=== PATIENT | female | born 1960 | race Caucasian/White ===

== ENCOUNTER → 2017-06-19 | Outpatient (CLI) | payer BC ==
--- NOTE | 2017-06-23 09:55 | MM ---
Reason for exam: screening (asymptomatic). Last mammogram was performed 2 years ago. History: Patient had first child at age 41. Family history of breast cancer in mother at age 68. MG Screening Mammo w CAD Bilateral CC and MLO view(s) were taken. Prior study comparison: June 26, 2015, bilateral MG screening mammo w CAD. February 07, 2014, bilateral MG diagnostic mammo w CAD REJI. The breast tissue is extremely dense which could obscure a lesion on mammography. No significant changes when compared with prior studies. ASSESSMENT: Benign, BI-RAD 2 RECOMMENDATION: Routine screening mammogram of both breasts in 1 year.
== END | disposition home or self-care (01) ==
LOC: RADMAMWWP 14:05
PROVIDERS: ATTEND Obstetrics & Gynecology
DX: Z12.31 Encounter for screening mammogram for malignant neoplasm of breast (principal)

== ENCOUNTER → 2018-11-27 | Outpatient (CLI) | payer BC ==
--- NOTE | 2018-12-01 12:14 | MM ---
Reason for exam: screening (asymptomatic). Last mammogram was performed 1 year and 5 months ago. History: Patient is postmenopausal and had first child at age 41. Family history of breast cancer in mother at age 68. Physical Findings: A clinical breast exam by your physician is recommended on an annual basis and results should be correlated with mammographic findings. MG Screening Mammo w CAD Bilateral CC and MLO view(s) were taken. Prior study comparison: June 19, 2017, bilateral MG screening mammo w CAD. June 26, 2015, bilateral MG screening mammo w CAD. The breast tissue is extremely dense which could obscure a lesion on mammography. Benign appearing bilateral calcifications. No suspicious abnormality. No significant changes when compared with prior studies. ASSESSMENT: Benign, BI-RAD 2 RECOMMENDATION: Routine screening mammogram of both breasts in 1 year.
== END ==
LOC: RADMAMWWP 15:13
PROVIDERS: ATTEND Obstetrics & Gynecology
DX: Z12.31 Encounter for screening mammogram for malignant neoplasm of breast (principal); Z80.3 Family history of malignant neoplasm of breast
CPT/HCPCS: 77067

== ENCOUNTER → 2020-04-03 | Outpatient (CLI) | payer BC ==
--- NOTE | 2020-04-04 13:56 | MM ---
Reason for exam: screening (asymptomatic). Last mammogram was performed 1 year and 4 months ago. History: Patient is postmenopausal and had first child at age 41. Family history of breast cancer in mother at age 68. Physical Findings: A clinical breast exam by your physician is recommended on an annual basis and results should be correlated with mammographic findings. MG 3D Screening Mammo W/Cad Bilateral CC and MLO view(s) were taken. Prior study comparison: November 27, 2018, bilateral MG screening mammo w CAD. June 19, 2017, bilateral MG screening mammo w CAD. The breast tissue is extremely dense which could obscure a lesion on mammography. No significant changes when compared with prior studies. ASSESSMENT: Benign, BI-RAD 2 RECOMMENDATION: Routine screening mammogram of both breasts in 1 year.
== END | disposition home or self-care (01) ==
LOC: RADMAMWWP 11:36
PROVIDERS: ATTEND Obstetrics & Gynecology
DX: Z12.31 Encounter for screening mammogram for malignant neoplasm of breast (principal); Z80.3 Family history of malignant neoplasm of breast
CPT/HCPCS: 77063; 77067

== ENCOUNTER → 2021-08-16 | Outpatient (CLI) | payer BC ==
--- NOTE | 2021-08-20 09:18 | MM ---
Reason for exam: screening (asymptomatic). Last mammogram was performed 1 year and 4 months ago. History: Patient is postmenopausal and had first child at age 41. Family history of breast cancer in mother at age 68. Physical Findings: A clinical breast exam by your physician is recommended on an annual basis and results should be correlated with mammographic findings. MG Screening Mammo w CAD Bilateral CC and MLO view(s) were taken. Prior study comparison: April 03, 2020, bilateral MG 3d screening mammo w/cad. November 27, 2018, bilateral MG screening mammo w CAD. The breast tissue is extremely dense which could obscure a lesion on mammography. No significant changes when compared with prior studies. ASSESSMENT: Benign, BI-RAD 2 RECOMMENDATION: Routine screening mammogram of both breasts in 1 year.
== END | disposition home or self-care (01) ==
LOC: RADMAMWWP 13:45
PROVIDERS: ATTEND Obstetrics & Gynecology
DX: Z12.31 Encounter for screening mammogram for malignant neoplasm of breast (principal); Z80.3 Family history of malignant neoplasm of breast; Z78.0 Asymptomatic menopausal state
CPT/HCPCS: 77067

== ENCOUNTER → 2023-02-24 | Outpatient (CLI) | payer BC ==
--- NOTE | 2023-02-25 08:30 | MM ---
Reason for Exam: Screening (asymptomatic). Last mammogram was performed 1 year(s) and 6 month(s) ago. Patient History: Menarche at age 15. First Full-Term at age 41. Late child-bearing (after 30). Postmenopausal. Mother had breast cancer, age 68. Risk Values: Jeri 5 year model risk: 2.9%. NCI Lifetime model risk: 14.3%. Prior Study Comparison: 11/27/2018 Bilateral Screening Mammogram, [facility]. 04/03/2020 Bilateral Screening Mammogram, [facility]. 08/16/2021 Bilateral Screening Mammogram, [facility]. Tissue Density: The breast tissue is heterogeneously dense. This may lower the sensitivity of mammography. Findings: Analyzed By CAD. There is no new suspicious mass within either breast. Stable benign-appearing calcifications within the right breast. There are 2 new grouped punctate calcifications within the left breast middle depth centrally and slightly lateral. Overall Assessment: Incomplete: need additional imaging evaluation, BI-RAD 0 Management: Diagnostic Mammogram of the left breast. A clinical breast exam by your physician is recommended on an annual basis and results should be correlated with mammographic findings. [facility] will attempt to contact patient to return for supplemental views and ultrasound if indicated. Note on Jeri scores and lifetime risk: 1. A Jeri score greater than 3% is considered moderate risk. If this is the case, consider specialist referral to assess eligibility for a risk reducing agent. If overall lifetime risk for the development of breast cancer is 20% or higher, the patient may qualify for future screening with alternating mammogram and breast MRI. Electronically signed and approved by: Royce Perry D.O.
== END | disposition home or self-care (01) ==
LOC: RADMAMWWP 15:21
PROVIDERS: ATTEND Obstetrics & Gynecology
DX: Z12.31 Encounter for screening mammogram for malignant neoplasm of breast (principal); Z78.0 Asymptomatic menopausal state; Z80.3 Family history of malignant neoplasm of breast
CPT/HCPCS: 77063; 77067

== ENCOUNTER → 2023-02-26 | Outpatient (CLI) | payer BC ==
--- NOTE | 2023-02-26 08:56 | MM ---
Reason for Exam: Additional evaluation requested from abnormal screening. Last screening mammogram was performed less than 1 month ago. Patient History: Menarche at age 15. First Full-Term at age 41. Late child-bearing (after 30). Postmenopausal. Mother had breast cancer, age 68. Risk Values: Jeri 5 year model risk: 2.9%. NCI Lifetime model risk: 14.3%. Prior Study Comparison: 04/03/2020 Bilateral Screening Mammogram, [facility]. 08/16/2021 Bilateral Screening Mammogram, [facility]. 02/24/2023 Bilateral MG 3D screening mammo w/cad, [facility]. Tissue Density: Left: The breast tissue is extremely dense which could obscure a lesion on mammography. Findings: Analyzed By CAD. There are new groups of heterogenous calcifications in the mid middle position left breast. These are an interval change from 2021. Stereotactic guided core biopsy 2 adjacent locations is recommended. Overall Assessment: Suspicious, BI-RAD 4 Management: Stereotactic Core Biopsy of the left breast. A negative mammogram report should not preclude additional follow up of suspicious palpable abnormalities. Patient should continue monthly self breast exam. A clinical breast exam by your physician is recommended on an annual basis and results should be correlated with mammographic findings. Electronically signed and approved by: Codey Markham D.O. Radiologis
== END | disposition home or self-care (01) ==
LOC: RADMAMWWP 08:18
PROVIDERS: ATTEND Obstetrics & Gynecology
DX: R92.8 Other abnormal and inconclusive findings on diagnostic imaging of breast (principal); Z78.0 Asymptomatic menopausal state; Z80.3 Family history of malignant neoplasm of breast
CPT/HCPCS: 77061; 77065

== ENCOUNTER → 2023-03-04 | Day surgery (SDC) | payer BC ==
[2023-03-04 08:01] VITALS: RESP 16; TEMP 98.2
[2023-03-04 10:28] VITALS: BP 133/75; PULSE 61
--- NOTE | 2023-03-13 10:01 | MM ---
Risk Values: Jeri 5 year model risk: 2.9%. NCI Lifetime model risk: 14.3%. Prior Study Comparison: 08/16/2021 Bilateral Screening Mammogram, [facility]. 02/24/2023 Bilateral MG 3D screening mammo w/cad, [facility]. 02/26/2023 Left MG 3D work up w/cad , [facility]. Pathology Description: Approach: Lateral to Medial Needle Type: Eviva Cores: 7 Skin Nicks: 1 Gauge: 9 no problems. Pathology Description: Approach: Lateral to Medial Needle Type: Eviva Cores: 7 Skin Nicks: 1 Gauge: 9 tumark Q SHAPE. Pathology Description: Approach: Lateral to Medial Needle Type: Eviva Cores: 7 Skin Nicks: 1 Gauge: 9 The calcifications in question within the left breast were targeted by the undersigned. Procedure was performed by the undersigned. Informed consent was obtained and all of the patients questions were answered. The standard sterile technique was utilized and appropriate local anesthesia was obtained at sites labeled A, B and C with 1% lidocaine (7cc per site) as well as 2% lidocaine epinephrine mixture (3cc per site). Mammotome probe was advanced into site A which is the most posterior group of microcalcifications and multiple core samples were obtained and sent to pathology for interpretation. Secure dylan top hat clip was deployed at the site of biopsy. This procedure mammogram demonstrates 9 mm clip migration anterolaterally. Mammotome probe was advanced into site B which is the middle group of microcalcifications and multiple core samples were obtained and sent to pathology for interpretation. Bowtie trimark clip was deployed at the site of biopsy. This procedure mammogram demonstrates 4 mm clip migration anteriorly. Mammotome probe was advanced into site C which is the most anterior group of microcalcifications and multiple core samples were obtained and sent to pathology for interpretation. [employer] Tumark clip was deployed at the site of biopsy. This procedure mammogram demonstrates no clip migration. The patient tolerated the procedure well and left the department in stable condition. Pathology results are pending. Impression: Successful stereotactic core biopsy of 3 sites within the left breast labeled A, B and C. PATHOLOGY STATUS:. Pathology Results: Result: Malignant, Invasive ductal carcinoma. A. 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 See Surgical Pathology Cancer Case Summary and Comment. B. 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 See Surgical Pathology Cancer Case Summary and Comment. C. LEFT BREAST, SITE C, STEREOTACTIC NEEDLE CORE BIOPSY: Microinvasive ductal carcinoma arising in background high grade DCIS. See Surgical Pathology Cancer Case Summary and Comment. Overall Assessment: Malignant Management: Surgical Consultation of the left breast. Consider MRI. Electronically signed and approved by: Nolan Silver M.D. Radiologis
== END ==
LOC: RADMAMWWP 07:34
PROVIDERS: ATTEND Surgery
DX: D05.12 Intraductal carcinoma in situ of left breast (principal); Z17.0 Estrogen receptor positive status [ER+]
CPT/HCPCS: 88305; 88342; 88341; 19081; 19082; A4648; J2001

== ENCOUNTER → 2023-03-19 | Outpatient (CLI) | payer BC ==
--- NOTE | 2023-03-20 08:49 | CA ---
Transthoracic Echo Report Name: Veronica Coulter Age: 62 Gender: F : 1960 Exam Date: 03/19/2023 15:46 Exam Location: [facility] Ht (in): 64 Wt (lb): 122 Ordering Physician: Josse Gordillo MD Attending/Referring Phys: Rigging Helper Tasha Vásquez RUST Procedure CPT: Indications: Z01.818 Chemo Cardiac Hx: Technical Quality: Fair Contrast 1: Total Dose (mL): Contrast 2: Total Dose (mL): MEASUREMENTS (Male / Female) Normal Values 2D ECHO LV Diastolic Diameter PLAX 4.6 cm 4.2 - 5.9 / 3.9 - 5.3 cm LV Systolic Diameter PLAX 3.3 cm IVS Diastolic Thickness 0.6 cm 0.6 - 1.0 / 0.6 - 0.9 cm LVPW Diastolic Thickness 0.7 cm 0.6 - 1.0 / 0.6 - 0.9 cm LV Relative Wall Thickness 0.3 LV Diastolic Volume MOD BP 81.0 cm??? 67 - 155 / 56 - 104 cm??? LV Systolic Volume MOD BP 36.3 cm??? 22 - 58 / 19 - 49 cm??? LV Ejection Fraction MOD BP 55.1 % >= 55 % LV Cardiac Index MOD BP 1581.9 cm???/min???m??? LV Diastolic Volume MOD 4C 79.0 cm??? LV Systolic Volume MOD 4C 31.7 cm??? LV Ejection Fraction MOD 4C 59.9 % LV Cardiac Index MOD 4C 1676.6 cm???/min???m??? LV Diastolic Length 4C 7.0 cm LV Systolic Length 4C 5.8 cm LV Diastolic Volume MOD 2C 80.5 cm??? LV Systolic Volume MOD 2C 38.9 cm??? LV Ejection Fraction MOD 2C 51.7 % LV Cardiac Index MOD 2C 1474.3 cm???/min???m??? LV Diastolic Length 2C 7.3 cm LV Systolic Length 2C 6.2 cm Ascending Aorta Diameter 3.2 cm M-MODE Aortic Root Diameter MM 3.0 cm LA Systolic Diameter MM 3.6 cm LA Ao Ratio MM 1.2 AV Cusp Separation MM 2.2 cm DOPPLER AV Peak Velocity 99.4 cm/s AV Peak Gradient 4.0 mmHg AV Mean Velocity 70.5 cm/s AV Mean Gradient 2.2 mmHg AV Velocity Time Integral 19.5 cm LVOT Peak Velocity 83.9 cm/s LVOT Peak Gradient 2.8 mmHg LVOT Velocity Time Integral 18.2 cm Mitral E Point Velocity 54.6 cm/s Mitral A Point Velocity 44.9 cm/s Mitral E to A Ratio 1.2 MV Deceleration Time 204.8 ms LV E' Lateral Velocity 12.6 cm/s Mitral E to LV E' Lateral Ratio 4.3 LV E' Septal Velocity 10.9 cm/s Mitral E to LV E' Septal Ratio 5.0 TR Peak Velocity 193.0 cm/s TR Peak Gradient 14.9 mmHg Right Atrial Pressure 8.0 mmHg Pulmonary Artery Systolic Pressu 22.9 mmHg Right Ventricular Systolic Press 22.9 mmHg FINDINGS Left Ventricle Left ventricular wall thickness normal. Left ventricular cavity size normal. normal left ventricular systolic function with no obvious regional wall motion abnormalities. Left ventricular ejection fraction is estimated at 55-60 %. Right Ventricle Mild right ventricular dilatation. Right Atrium Mild right atrial dilatation. Left Atrium Normal left atrial size. Mitral Valve Structurally normal mitral valve. Mild mitral regurgitation. Aortic Valve Trileaflet aortic valve. Mild aortic regurgitation. Mildly thickened leaflets Tricuspid Valve Structurally normal tricuspid valve. Mild tricuspid regurgitation. Pulmonic Valve Pulmonic valve not well visualized. Pericardium No pericardial effusion. Aorta Normal size aortic root and proximal ascending aorta. CONCLUSIONS 1. Normal left ventricular size and systolic function 2. Mild mitral, aortic and tricuspid regurgitation Previewed by: Dr. Steven Smith MD (Electronically Signed) Final Date: 20 March 2023 08:48
== END | disposition home or self-care (01) ==
LOC: RADECHMAIN 15:35
PROVIDERS: ATTEND Internal Medicine Hematology & Oncology
DX: Z01.818 Encounter for other preprocedural examination (principal); I08.3 Combined rheumatic disorders of mitral, aortic and tricuspid valves
CPT/HCPCS: 93306

== ENCOUNTER → 2023-07-08 | Outpatient (CLI) | payer BC ==
[2023-07-08 20:32] LABS: ALT 55 U/L (8-44); AST 35 U/L (13-35); Albumin 4.7 g/dL (3.8-4.9); Albumin/Globulin Ratio 2.24 Ratio (1.60-3.17); Alkaline Phosphatase 108 U/L (41-126); BUN/Creat Ratio 20.89 Ratio (12.00-20.00); Blood Urea Nitrogen 18.8 mg/dL (9.0-27.0); Carbon Dioxide 26.9 mmol/L (21.6-31.8); Chloride 96 mmol/L (96-109); Globulin 2.1 g/dL (1.6-3.3); Glucose 95 mg/dL (70-110); Potassium 3.9 mmol/L (3.5-5.5); Sodium 136 mmol/L (135-145); Total Bilirubin 1.8 mg/dL (0.3-1.2); Total Protein 6.8 g/dL (6.2-8.2)
[2023-07-08 22:19] LABS: Basophils # (M) 0 X 10*3/uL (0.00-0.10); HCT 35.5 % (37.2-46.3); HGB 11.7 g/dL (12.0-15.0); MCH 33.2 pg (27.0-32.0); MCV 100.9 FL (80.0-97.0); Mean Platelet Volume 11.5 FL (9.5-12.2); NRBC Per 100 WBC 0 X 10*3/uL (0.00-0.01); Neutrophils % (M) 52 %; Platelet Count 95 X 10*3/uL (140-440); RBC 3.52 X 10*6/uL (4.10-5.20); RDW 15.7 % (11.5-14.5)
[2023-07-08 22:30] LABS: Acanthocytes 2+; Elliptocytes 2+; Eosinophils # (M) 0.07 X 10*3/uL (0.04-0.35); Lymphocytes # (M) 1.47 X 10*3/uL (0.90-5.00); Monocytes # (M) 0.14 X 10*3/uL (0.20-1.00); Neutrophils # (M) 1.82 X 10*3/uL (1.80-7.70)
== END | disposition home or self-care (01) ==
LOC: LABWHC1 14:51
PROVIDERS: ATTEND Nurse Practitioner
DX: C50.912 Malignant neoplasm of unspecified site of left female breast (principal)
CPT/HCPCS: 36415; 80053; 85025